=== PATIENT | female | born 1965 | race Caucasian/White ===

== ENCOUNTER 2021-07-19 12:16 | Outpatient (CLI) | payer OTHER, SELFPAY ==
[2021-07-22 18:08] LABS: Chlamydia By Nucleic Acid AMP Negative (Negative)
[2021-07-23 12:44] LABS: Gonococcus By Nucleic Acid AMP Negative (Negative)
[2021-07-23 21:03] LABS: HPV APTIMA, High Risk Negative (Negative)
== END 2021-07-19 23:59 | disposition short-term general hospital (02) ==
LOC: LABSPEC 12:22
PROVIDERS: Visit Provider Obstetrics & Gynecology
DX: Z12.4 Encounter for screening for malignant neoplasm of cervix (principal)
CPT/HCPCS: 87491; 87591; 87624; 88175; G0145

== ENCOUNTER → 2023-02-04 | Outpatient (CLI) | payer OTHER, SELFPAY ==
--- NOTE | 2023-02-04 08:40 | US_ITS ---
STUDY: ULTRASOUND BREAST - LEFT REASON FOR EXAM: Female, 57 years old. Palpable left axillary mass. TECHNIQUE: Axial and longitudinal images of the LEFT breast were performed with a high resolution ultrasound transducer. # OF IMAGES: 22 COMPARISON: Comparison is made with prior mammogram done earlier today. FINDINGS: LEFT Breast: The axillary region of the left breast was examined with ultrasound. The palpable lump corresponds to a 3.4 cm x 1.7 cm by 1.2 cm lymph node. Several smaller lymph nodes are seen in the axilla. US/Breast Limited Unilateral IMPRESSION: Left axillary adenopathy. The largest lymph node measures 3.4 cm x 1.7 cm x 1.2 cm. This corresponds to the palpable. ASSESSMENT CATEGORY: BIRADS Category 2: Benign. A letter regarding these results will be sent to the patient by the facility within 30 days. Electronically Signed: Harlan Toscano MD at 11:17 EDT ,
--- NOTE | 2023-02-04 08:55 | BI_ITS ---
MAMMOGRAPHY - UNILATERAL SCREENING: LEFT BREAST REASON FOR EXAM: Female, 57 years old. Routine annual screening examination (unilateral). PERTINENT HISTORY: Non-contributory. Left axillary fullness. TECHNIQUE: Digital unilateral breast benoit (3D mammographic acquisition) in the CC and MLO projections. 2-D mediolateral oblique (MLO) and craniocaudad (CC) views of both breasts were obtained. An exaggerated craniocaudad view was obtained as well. CAD: Full Field Digital Mammography with Computer Added Detection was performed. COMPARISON: Comparison is made with prior outside examination September 03, 2022. FINDINGS: Breast Composition: There are scattered areas of fibroglandular density. There are no dominant masses or suspicious calcifications. No other significant abnormalities are identified. There has been no significant change since the prior study. BI/DIAG MAMM W/CAD, UNILAT IMPRESSION: Stable unilateral screening mammogram. With the patient''s history of fullness in the axillary region of the breast, targeted ultrasound correlation is recommended. ASSESSMENT CATEGORY: BIRADS Category 0: Incomplete. Need additional imaging evaluation. A letter regarding these results will be sent to the patient by the facility within 30 days. Approximately 10% of breast cancers are not detected by mammography. A normal mammogram should not delay biopsy of a clinically suspicious abnormality. [id number] Electronically Signed: Harlan Toscano MD at 9:47 EDT ,
== END | disposition home or self-care (01) ==
PROVIDERS: Referring Provider Obstetrics & Gynecology; Visit Provider Obstetrics & Gynecology
DX: N63.20 Unspecified lump in the left breast, unspecified quadrant (principal); R59.9 Enlarged lymph nodes, unspecified
CPT/HCPCS: 76642; 77061; 77065; G0279